=== PATIENT | female | born 1985 | race Caucasian/White ===

== ENCOUNTER 2022-03-30 14:01 | Inpatient (IN) ==
[2022-03-30 15:00] LABS: Bacteria,Urine Occasional /HPF (Few); RBC,Urine <1 /HPF (0-4); Squamous Epithelial Cell,Urine Occasional /HPF (0-10)
[2022-03-30 15:01] LABS: Bilirubin,Urine Negative (Negative); Blood, Urine Trace mg/dL (Negative); Glucose,Urine (UA) Negative (Negative); Ketones,Urine Negative (Negative); Nitrite,Urine Negative (Negative); Protein,Urine Negative (Negative); Urine Appearance Clear (Clear); Urine Color Yellow (Yellow); Urine Urobilinogen 0.2 eU/dL (<2.0)
[2022-03-30] MEDS ORDERED: LACTATED RINGERS 1,000 ML IV ONE (15:03)
[2022-03-30] MEDS ORDERED: cefTRIAXone 1,000 MG in SODIUM CHLORIDE 0.9% 100 ML IV ONE (16:12)
[2022-03-30] MEDS ORDERED: ACETAMINOPHEN 500 MG TABLET PO ONE (16:25)
[2022-03-30 16:40] LABS: Basophils # 0.1 10*3/uL (0.0-0.2); Basophils % 0.4 % (0.0-0.8); Eosinophils # 0.2 10*3/uL (0.0-0.87); Eosinophils % 1.5 % (0.00-10.9); Hematocrit 35.8 VOL% (35.7-47.0); Hemoglobin 11.7 GM/DL (12.0-16.0); Immature Granulocytes % 0.9 %; Immature Granulocytes Absolute 0.12 #; Lymphocytes # 3.2 10*3/uL (1.4-4.0); Lymphocytes % 23.1 % (21.3-54.2); Mean Corpuscular HGB Conc 32.7 GM/DL (32-36); Mean Corpuscular Volume 92.7 FL (87-102); Mean Platelet Volume 10.8 FL (9.6-12.0); Monocytes # 0.9 10*3/uL (0.11-0.8); Monocytes % 6.3 % (1.7-12.7); NRBC # 0.02 10*3/uL; Neutrophils % 67.8 % (38.7-73.9); Platelet Count 214 T/CUMM (130-400); Red Blood Count 3.86 MC/CUMM (3.8-5.5); Red Cell Distribution Width 13.5 % (9.3-17.3); White Blood Count 13.9 T/CUMM (4-12)
[2022-03-30 16:57] LABS: Uric Acid 4.2 MG/DL (2.6-6.0)
[2022-03-30 16:58] LABS: Alanine Aminotransferase 15 U/L (13-56); Albumin 2.7 G/DL (3.4-5.0); Alkaline Phosphatase 167 U/L (45-117); Aspartate Amino Transferase 19 U/L (0-37); Bilirubin,Total < 0.39 MG/DL (0.20-1.00); Blood Urea Nitrogen 13 MG/DL (7-18); Calcium 9.3 MG/DL (8.5-10.1); Carbon Dioxide 22 MMOL/L (21-32); Chloride 109 MMOL/L (98-107); Glucose 86 MG/DL (74-106); Osmolality,Calculated 271.8 MOS/KG (273-304); Potassium 4.4 MMOL/L (3.5-5.1); Sodium 137 MMOL/L (136-145); Total Protein 6.8 G/DL (6.4-8.2)
== END 2022-03-30 17:31 | disposition home or self-care (01) | DRG 566 ==
LOC: N.LD 14:01
PROVIDERS: ADMIT Obstetrics & Gynecology; ATTEND Obstetrics & Gynecology

== ENCOUNTER 2022-04-09 13:49 | Inpatient (IN) ==
[2022-04-09] MEDS ORDERED: BUTORPHANOL 2 MG/ML VIAL IV PRN (15:06)
[2022-04-09] MEDS ORDERED: miSOPROStoL 200 MCG TABLET RECTAL PRN (15:06)
[2022-04-09] MEDS ORDERED: ONDANSETRON 4 MG/2 ML VIAL IV PRN (15:06)
[2022-04-09] MEDS ORDERED: MEPERIDINE 25 MG/1 ML VIAL IV PRN (15:06)
[2022-04-09] MEDS ORDERED: CARBOPROST TROMETHAMINE 250 MCG/ML AMP IM PRN (15:06)
[2022-04-09] MEDS ORDERED: METHYLERGONOVINE 0.2 MG/1 ML AMP IM PRN (15:06)
[2022-04-09] MEDS ORDERED: TRANEXAMIC ACID 1,000 MG in SODIUM CHLORIDE 0.9% 100 ML IV PRN (15:06)
[2022-04-09] MEDS ORDERED: OXYTOCIN/LR 20 UNIT/1,000 ML BAG IV ONE (15:06)
[2022-04-09] MEDS ORDERED: DINOPROSTONE 10 MG VAG.INSERT VAG ONE (15:18)
[2022-04-09 15:30] LABS: Basophils # 0.1 10*3/uL (0.0-0.2); Basophils % 0.4 % (0.0-0.8); Eosinophils # 0.2 10*3/uL (0.0-0.87); Eosinophils % 1.5 % (0.00-10.9); Hematocrit 33.8 VOL% (35.7-47.0); Hemoglobin 11.1 GM/DL (12.0-16.0); Immature Granulocytes % 0.9 %; Immature Granulocytes Absolute 0.12 #; Lymphocytes # 3.5 10*3/uL (1.4-4.0); Lymphocytes % 24.9 % (21.3-54.2); Mean Corpuscular HGB Conc 32.8 GM/DL (32-36); Mean Corpuscular Volume 92.9 FL (87-102); Mean Platelet Volume 10.8 FL (9.6-12.0); Monocytes # 0.9 10*3/uL (0.11-0.8); Monocytes % 6.3 % (1.7-12.7); Platelet Count 214 T/CUMM (130-400); Red Blood Count 3.64 MC/CUMM (3.8-5.5); Red Cell Distribution Width 13.5 % (9.3-17.3)
[2022-04-09] MEDS ORDERED: OXYTOCIN/LR 20 UNIT/1,000 ML BAG IV SCH (15:30)
[2022-04-09 15:45] LABS: INR 0.8; PT Patient Result 9.3 SECS (10.1-12.1); Partial Thromboplastin Time 26.8 SECS (23.7-32.9)
[2022-04-09 15:56] LABS: Alanine Aminotransferase 14 U/L (13-56); Albumin 2.7 G/DL (3.4-5.0); Alkaline Phosphatase 177 U/L (45-117); Aspartate Amino Transferase 14 U/L (0-37); Bilirubin,Total < 0.39 MG/DL (0.20-1.00); Blood Urea Nitrogen 15 MG/DL (7-18); Carbon Dioxide 22 MMOL/L (21-32); Chloride 109 MMOL/L (98-107); Glucose 89 MG/DL (74-106); Potassium 3.9 MMOL/L (3.5-5.1); Sodium 136 MMOL/L (136-145); Total Protein 6.9 G/DL (6.4-8.2); Uric Acid 4.2 MG/DL (2.6-6.0)
[2022-04-09] MEDS ORDERED: diphenhydrAMINE 50 MG/1 ML VIAL IV PRN ×2 (23:03)
[2022-04-09] MEDS ORDERED: ONDANSETRON 4 MG/2 ML VIAL IV ONE (23:03)
[2022-04-09] MEDS ORDERED: ePHEDrine 50 MG/ML VIAL IV PRN (23:03)
[2022-04-09] MEDS ORDERED: hydrOXYzine HCL 25 MG/1 ML VIAL IM PRN (23:03)
[2022-04-09] MEDS ORDERED: NALOXONE 0.4 MG/ML VIAL IV PRN (23:03)
[2022-04-09] MEDS ORDERED: CITRIC ACID/SODIUM CITRATE 30 ML UDCUP PO ONE (23:03)
[2022-04-09] MEDS ORDERED: PROMETHAZINE 25 MG/1 ML VIAL IM ONE (23:03)
[2022-04-09] MEDS ORDERED: FAMOTIDINE 20 MG/2 ML VIAL IV ONE (23:03)
[2022-04-09] MEDS: LACTATED RINGERS 1,000 ML IV SCH (23:12)
[2022-04-09] MEDS ORDERED: AMPICILLIN INJ 2,000 MG in SODIUM CHLORIDE 0.9% 100 ML IV ONE (23:27)
[2022-04-10] MEDS: fentaNYL 2 MCG/ROPIV 0.2% EPID 100 ML EPIDURAL SCH ×4 (00:03→20:21)
[2022-04-10] MEDS ORDERED: SODIUM CHLORIDE 0.9% 100 ML IV ONE (03:10)
[2022-04-10] MEDS ORDERED: miSOPROStoL 200 MCG TABLET ONE (03:10)
[2022-04-10] MEDS ORDERED: TRANEXAMIC ACID 1,000 MG/10 ML VIAL ONE (03:10)
[2022-04-10] MEDS ORDERED: OXYTOCIN/LR 20 UNIT/1,000 ML BAG IV ONE ×2 (03:10→23:00)
[2022-04-10] MEDS ORDERED: CARBOPROST TROMETHAMINE 250 MCG/ML AMP IM ONE (03:11)
[2022-04-10] MEDS ORDERED: METHYLERGONOVINE 0.2 MG/1 ML AMP ONE (03:11)
[2022-04-10] MEDS: LACTATED RINGERS 1,000 ML IV SCH ×3 (04:18→21:07)
[2022-04-10] MEDS: AMPICILLIN INJ 2,000 MG in SODIUM CHLORIDE 0.9% 100 ML IV SCH ×3 (06:11→18:30)
[2022-04-10] MEDS ORDERED: fentaNYL 100 MCG/2 ML VIAL ONE (17:13)
[2022-04-10] MEDS ORDERED: ceFAZolin 2,000 MG/50 ML DUPLEX IV ONE (20:50)
[2022-04-10] MEDS ORDERED: LIDOCAINE MPF 2% /EPI 20 ML VIAL ONE (21:33)
[2022-04-10] MEDS ORDERED: ONDANSETRON 4 MG/2 ML VIAL ONE (21:35)
[2022-04-10] MEDS ORDERED: PHENYLEPHRINE 1 MG/10 ML SYRINGE IV ONE (21:35)
[2022-04-10] MEDS ORDERED: buprenorphine HCL 0.3 MG/ML VIAL ONE (21:40)
[2022-04-10] MEDS ORDERED: KETOROLAC 30 MG/1 ML VIAL ONE (21:46)
[2022-04-10 21:53] LABS: Cord Arterial Blood HCO3 18.4 MMOL/L
[2022-04-10 21:56] LABS: Cord Venous Blood HCO3 19.8 MMOL/L; Cord Venous Blood PCO2 46.8 MMHG; Cord Venous Blood PO2 17.8
[2022-04-10] MEDS ORDERED: MAGNESIUM HYDROXIDE SUSP 30 ML UDCUP PO PRN (22:12)
[2022-04-10] MEDS ORDERED: ONDANSETRON 4 MG/2 ML VIAL IV PRN (22:12)
[2022-04-10] MEDS ORDERED: SIMETHICONE CHEW 80 MG TABLET PO PRN (22:12)
[2022-04-10] MEDS ORDERED: ACETAMINOPHEN 325 MG TABLET PO PRN (22:12)
[2022-04-10] MEDS ORDERED: LACTATED RINGERS 1,000 ML IV SCH (22:30)
[2022-04-10] MEDS ORDERED: RHO(D) IMMUNE GLOBULIN 300 MCG SYRINGE IM ONE (23:00)
[2022-04-11] MEDS ORDERED: oxyCODONE/ACETAMINOPHEN 5-325 MG TABLET PO SCH (01:00)
[2022-04-11] MEDS: oxyCODONE/ACETAMINOPHEN 5-325 MG TABLET PO PRN ×4 (01:19→23:48)
[2022-04-11] MEDS: KETOROLAC 30 MG/1 ML VIAL IV SCH ×3 (04:20→18:58)
[2022-04-11 04:53] LABS: Basophils # 0.1 10*3/uL (0.0-0.2); Basophils % 0.3 % (0.0-0.8); Eosinophils # 0.1 10*3/uL (0.0-0.87); Eosinophils % 0.5 % (0.00-10.9); Hematocrit 30.1 VOL% (35.7-47.0); Hemoglobin 9.8 GM/DL (12.0-16.0); Immature Granulocytes Absolute 0.17 #; Lymphocytes # 2.7 10*3/uL (1.4-4.0); Lymphocytes % 15.8 % (21.3-54.2); Mean Corpuscular HGB Conc 32.6 GM/DL (32-36); Mean Corpuscular Volume 94.1 FL (87-102); Neutrophils % 76.4 % (38.7-73.9); Platelet Count 188 T/CUMM (130-400); Red Cell Distribution Width 13.4 % (9.3-17.3); White Blood Count 17.3 T/CUMM (4-12)
[2022-04-11] MEDS: MULTIVITAMIN (PRENATAL) TABLET PO SCH (08:47)
[2022-04-11] MEDS: IBUPROFEN 800 MG TABLET PO PRN ×2 (08:48→17:52)
[2022-04-11] MEDS: DOCUSATE SODIUM 100 MG CAPSULE PO SCH ×2 (08:49→21:48)
[2022-04-11 10:22] LABS: Barbiturates Screen,Urine Negative (Negative); Benzodiazepines Screen,Urine Negative (Negative); Cannabinoid Screen,Urine Negative (Negative); Opiate Screen,Urine Negative (Negative); Phencyclidine Screen,Urine Negative (Negative)
[2022-04-11] MEDS: AMPICILLIN INJ 2,000 MG in SODIUM CHLORIDE 0.9% 100 ML IV SCH (21:50)
[2022-04-12] MEDS: IBUPROFEN 800 MG TABLET PO PRN ×2 (02:12→09:57)
[2022-04-12] MEDS: oxyCODONE/ACETAMINOPHEN 5-325 MG TABLET PO PRN (06:10)
[2022-04-12] MEDS: MULTIVITAMIN (PRENATAL) TABLET PO SCH (09:02)
[2022-04-12 09:42] VITALS: BP 134/73
[2022-04-12] MEDS: DOCUSATE SODIUM 100 MG CAPSULE PO SCH (09:44)
== END 2022-04-12 10:55 | disposition home or self-care (01) | DRG 540 ==
LOC: N.LD 13:49 → N.OB 04-11 00:53
PROVIDERS: ADMIT Obstetrics & Gynecology; ATTEND Obstetrics & Gynecology
PROC: LDCSECT (ICD-10-PCS; 2022-04-10 21:00)